=== PATIENT | female | born 1985 | race Caucasian/White ===

== ENCOUNTER 2020-10-12 08:31 | Inpatient (IN) ==
[~2020-10-12 08:31] MED LIST: CeFAZolin 2,000 MG/50 ML BAG IVPB ONE; Famotidine 20 MG/2 ML VIAL IVP ONE; Metoclopramide 10 MG/2 ML VIAL IVP ONE; Ringers Solution, Lactated 1,000 ML ONE
[2020-10-12] MEDS ORDERED: Oxytocin 20 units/ LR 1000 mL 20 UNIT/1,000 ML BAG IVC SCH ×3 (08:45→13:52)
[2020-10-12 09:25] LABS: Amphetamine Screen,Urine Negative ng/mL (Cutoff=1000); Barbiturate Screen,Urine Negative ng/mL (Cutoff=200); Benzodiazepines Screen,Urine Negative ng/mL (Cutoff=200); Cannabinoid Screen,Urine Negative ng/mL (Cutoff = 50); Cocaine Screen,Urine Negative ng/mL (Cutoff= 300); Opiate Screen,Urine Negative ng/mL (Cutoff=300); Phencyclidine Screen,Urine Negative ng/mL (Cutoff=25)
[2020-10-12 10:18] LABS: Basophils % 0.4 %; Eosinophils # 0.1 K/mcL (0.0-0.6); Eosinophils % 0.6 %; Hematocrit 41.6 % (35.3-44.9); Hemoglobin 13.8 g/dL (11.5-15.4); Immature Granulocytes % 0.9 % (0-4); Lymphocytes # 1.9 K/mcL (0.6-4.6); Lymphocytes % 17.7 %; Mean Corpuscular HGB Conc 33.2 g/dL (31.6-35.5); Mean Corpuscular Hemoglobin 28.5 pg (28.0-33.3); Mean Corpuscular Volume 85.8 fL (83.0-100.0); Mean Platelet Volume 10.1 fL (9.4-12.4); Monocytes # 0.6 K/mcL (0.0-1.3); Neutrophils # 8.2 K/mcL (1.6-8.9); Platelet Count 217 K/mcL (140-400); Red Blood Count 4.85 M/mcL (3.82-4.97); Red Cell Distribution Width 14.4 % (11.5-14.5); Segmented Neutrophils % 75.4 %; White Blood Count 10.9 K/mcL (4.3-11.1)
[2020-10-12] MEDS ORDERED: Azithromycin 500 MG in 0.9 % Sodium Chloride 250 ML IVPB ONE (10:34)
[2020-10-12] MEDS ORDERED: Ringers Solution, Lactated 1,000 ML ONE (10:40)
[2020-10-12 10:46] LABS: Adenovirus Not Detected (Not Detect); Bordetella Pertussis Not Detected (Not Detect); Chlamydophila pneumoniae Not Detected (Not Detect); Coronavirus 229E Not Detected (Not Detect); Coronavirus HKU1 Not Detected (Not Detect); Coronavirus NL63 Not Detected (Not Detect); Coronavirus OC43 Not Detected (Not Detect); Human Metapneumovirus Not Detected (Not Detect); Human Rhinovirus/Enterovirus Not Detected (Not Detect); Influenza A Subtype 2009 H1 Not Detected (Not Detect); Influenza B Not Detected (Not Detect); Mycoplasma pneumoniae Not Detected (Not Detect); Parainfluenza Virus 1 Not Detected (Not Detect); Parainfluenza Virus 2 Not Detected (Not Detect); Parainfluenza Virus 3 Not Detected (Not Detect); Parainfluenza Virus 4 Not Detected (Not Detect); Respiratory Syncytial Virus Not Detected (Not Detect); SARS-CoV-2 Not Detected (Not Detect)
[2020-10-12] MEDS ORDERED: *HR* FentaNYL (PF) 100 MCG/2 ML VIAL ONE (10:58)
[2020-10-12] MEDS ORDERED: *HR* Morphine Sulfate/PF 10 MG/10 ML AMPUL ONE (10:58)
[2020-10-12] MEDS ORDERED: Ondansetron 4 MG/2 ML VIAL ONE (11:02)
[2020-10-12] MEDS ORDERED: *HR* FentaNYL (PF) 100 MCG/2 ML VIAL IVP PRN (11:47)
[2020-10-12] MEDS ORDERED: Naloxone 0.4 MG/ML INJ IVP PRN (11:47)
[2020-10-12] MEDS ORDERED: Ondansetron 4 MG/2 ML VIAL IVP PRN ×2 (11:47→13:52)
[2020-10-12] MEDS ORDERED: *HR* Meperidine 25 MG/ML SYRINGE IVP PRN (11:47)
[2020-10-12] MEDS ORDERED: Promethazine 6.25 MG in Water for inj. (sterile) 20 ML IVPB PRN (11:47)
[2020-10-12] MEDS ORDERED: Acetaminophen IV 1,000 MG/100 ML BAG IVPB ONE (11:49)
[2020-10-12] MEDS ORDERED: *HR* Phenylephrine 10 MG/ML VIAL ONE (12:11)
[2020-10-12] MEDS ORDERED: Rho Immune Globulin 1,500 UNIT SYRINGE IM ONE (13:52)
[2020-10-12] MEDS ORDERED: Metoclopramide 10 MG/2 ML VIAL IVP PRN (13:52)
[2020-10-12] MEDS ORDERED: Ringers Solution, Lactated 1,000 ML IVC SCH (13:52)
[2020-10-12] MEDS ORDERED: Sennosides 8.6 MG TABLET PO PRN (13:52)
[2020-10-12] MEDS ORDERED: Simethicone 80 MG TAB.CHEW PO PRN (13:52)
[2020-10-12] MEDS: *HR* OxyCODONE Immed Rel 5 MG TABLET PO PRN (14:23)
[2020-10-12] MEDS ORDERED: *HR* OxyCODONE Immed Rel 5 MG TABLET PO SCH (16:00)
[2020-10-12] MEDS: Ibuprofen 600 MG TABLET PO SCH ×2 (16:01→22:18)
[2020-10-12] MEDS ORDERED: Ibuprofen 600 MG TABLET PO SCH (18:00)
[2020-10-12] MEDS: Acetaminophen 325 MG TABLET PO SCH (18:27)
[2020-10-13] MEDS: *HR* OxyCODONE Immed Rel 5 MG TABLET PO PRN ×2 (00:47→20:12)
[2020-10-13] MEDS: Acetaminophen 325 MG TABLET PO SCH ×4 (00:48→23:49)
[2020-10-13 05:55] LABS: Immature Granulocytes % 0.7 % (0-4); Lymphocytes % 10.5 %; Mean Corpuscular Hemoglobin 28.2 pg (28.0-33.3); Mean Corpuscular Volume 85.5 fL (83.0-100.0); Mean Platelet Volume 9.8 fL (9.4-12.4); Platelet Count 165 K/mcL (140-400); Red Blood Count 3.86 M/mcL (3.82-4.97); Red Cell Distribution Width 14.5 % (11.5-14.5); Segmented Neutrophils % 80.6 %; White Blood Count 10.1 K/mcL (4.3-11.1)
[2020-10-13 05:56] LABS: Basophils % 0.2 %; Eosinophils # 0.1 K/mcL (0.0-0.6); Hemoglobin 10.9 g/dL (11.5-15.4); Lymphocytes # 1.1 K/mcL (0.6-4.6); Monocytes # 0.7 K/mcL (0.0-1.3); Neutrophils # 8.2 K/mcL (1.6-8.9)
[2020-10-13] MEDS: Prenatal Vit/FA 1 EACH TABLET PO SCH (07:37)
[2020-10-13] MEDS: Ibuprofen 600 MG TABLET PO SCH ×3 (07:37→23:48)
[2020-10-13] MEDS ORDERED: Lanolin 7 G OINT...G. TP PRN (20:24)
[2020-10-14] MEDS: *HR* OxyCODONE Immed Rel 5 MG TABLET PO PRN ×2 (04:15→10:18)
[2020-10-14] MEDS: Acetaminophen 325 MG TABLET PO SCH (10:15)
[2020-10-14] MEDS: Prenatal Vit/FA 1 EACH TABLET PO SCH (10:16)
[2020-10-14] MEDS: Ibuprofen 600 MG TABLET PO SCH (10:16)
[2020-10-14 11:45] VITALS: BP 120/74
== END 2020-10-14 12:43 | disposition home or self-care (01) | DRG 787 ==
LOC: 1NENULAB → 1NENUOBS 15:07
PROVIDERS: ADMIT Student in an Organized Health Care Education/Training Program; ATTEND Student in an Organized Health Care Education/Training Program